=== PATIENT | male | born 1995 | race African-American/Black ===

== ENCOUNTER 2020-10-13 09:09 | Emergency (ER) | payer SELFPAY ==
[~2020-10-13] VITALS: Ht 175.3 cm; Wt 85.3 kg
--- NOTE | 2020-10-13 09:10 | NUR ---
[facility]PT114/PD FOR MEDICAL CLEARANCE. IN CUSTODY FOR TRESPASSING PER PD. PATIENT A/OX4, BREATHING EVEN AND UNLABORED, NO SOB NOTED. NEEDS ATTENDED.
--- NOTE | 2020-10-13 09:20 | NUR ---
DR. ESPOSITO AT [facility] FOR EVAL.
[2020-10-13] MEDS ORDERED: QUET300T2 PO (09:26)
[2020-10-13] MEDS ORDERED: DIVA500T4 PO (09:26)
[2020-10-13] MEDS ORDERED: DIVA250T PO (09:26)
[2020-10-13 09:49] VITALS: BP 146/80
--- NOTE | 2020-10-13 09:49 | NUR ---
Patient discharged to custody in stable condition. Written and verbal after care instructions given. Patient verbalizes understanding of instruction.
== END 2020-10-13 09:50 ==
LOC: ER 09:13
DX: F31.9 Bipolar disorder, unspecified (principal); F43.10 Post-traumatic stress disorder, unspecified; F90.9 Attention-deficit hyperactivity disorder, unspecified type; I10 Essential (primary) hypertension; R45.1 Restlessness and agitation; Z76.0 Encounter for issue of repeat prescription